=== PATIENT | male | born 1990 | race Caucasian/White ===

== ENCOUNTER 2024-08-13 05:58 | Emergency (ER) | payer MEDICAID ==
[~2024-08-13] VITALS: Ht 180.3 cm; Wt 86.0 kg
[2024-08-13 06:05] VITALS: BP 119/81; PULSE 105; RESP 18; TEMP 36.6; O2SAT 98
[2024-08-13 06:08] VITALS: O2SAT 99
[2024-08-13 06:30] LABS: BASOPHILS % 1.2 % (0.0-2.0); EOSINOPHILS % 10.4 % (0.0-5.0); HEMATOCRIT. 44.0 % (42.0-52.0); HEMOGLOBIN. 14.6 g/dL (14.0-18.0); LYMPHOCYTES % 36.3 % (20.0-50.0); MEAN PLATELET VOLUME 7.7 fl (7.4-10.4); MONOCYTES % 6.4 % (2.0-8.0); NEUTROPHILS % 45.7 % (40.0-76.0); PLATELET 256 x1000/uL (130-400); RED BLOOD CELL COUNT 4.66 mill/uL (4.7-6.1); RED CELL DISTRIBUTION WIDTH 12.7 % (11.6-14.6)
[2024-08-13 06:42] LABS: CREATININE 1.0 mg/dL (0.6-1.3)
[2024-08-13 06:43] LABS: UREA NITROGEN BLOOD 11 mg/dL (9-23)
[2024-08-13 06:44] LABS: ASPARTATE AMINOTRANSFERASE 28 IU/L (<34)
[2024-08-13 06:45] LABS: BILIRUBIN TOTAL 0.6 mg/dL (0.1-1.0); PROTEIN TOTAL 7.4 g/dL (6.0-8.3)
[2024-08-13] MEDS ORDERED: ONDANSETRON 4MG ODT PO ONE (06:45)
[2024-08-13] MEDS ORDERED: ACETAMINOPHEN 325MG TABLET PO ONE (06:45)
[2024-08-13 07:17] LABS: ASPARTATE AMINOTRANSFERASE 32 IU/L (<34)
[2024-08-13 07:18] LABS: BILIRUBIN DIRECT 0.2 mg/dL (<=3.0); BILIRUBIN TOTAL 0.6 mg/dL (0.1-1.0); PROTEIN TOTAL 7.5 g/dL (6.0-8.3)
== END 2024-08-13 07:19 | disposition left against medical advice (07) ==
LOC: ER 05:58
DX: R10.30 Lower abdominal pain, unspecified (principal); R11.2 Nausea with vomiting, unspecified; R19.7 Diarrhea, unspecified; J45.909 Unspecified asthma, uncomplicated
CPT/HCPCS: 36415; 80053; 80076; 85025; 99283